=== PATIENT | female | born 2000 | race Caucasian/White ===

== ENCOUNTER 2022-05-06 17:40 | Emergency (ER) | payer BC, SELFPAY ==
--- NOTE | ~2022-05-06 | CT_ITS ---
EXAMINATION: CT abdomen pelvis w con DATE: 05/06/2022 20:55 INDICATION: RLQ and RUQ abd pain TECHNIQUE: Computed tomography (CT) of the abdomen and pelvis was performed with 100 mL Omnipaque-350 intravenous contrast. Automated exposure control and iterative reconstruction technique were employe d. The dose-length product was 321.29 mGy-cm. COMPARISON: None. FINDINGS: Lower thorax: Unremarkable Liver: Normal. Biliary/Gallbladder: Gallbladder is normal. No bile duct dilation. Pancreas: No mass or duct dilation. Spleen: Normal. Adrenals:No mass. Kidneys: No mass, stone, or hydronephrosis. GI tract: No small or large bowel dilation. Normal appendix. Mesentery/Peritoneum: No ascites, mass, or free air. Retroperitoneum: No mass. Pelvis: Pelvic organs are within normal limits. Soft Tissues: Soft tissues and body wall unremarkable. Bones: No acute osseous finding. IMPRESSION: No acute abdominopelvic process detected. Reviewed, dictated and finalized at location K. [facility]
[2022-05-06 17:50] VITALS: BP 138/105; PULSE 116; RESP 22; TEMP 36.9; O2SAT 100
[2022-05-06 20:13] LABS: Basophils Percent Auto 0.3 % (0.2-1.2); Hematocrit 44.8 % (37.0-47.0); Hemoglobin 15.5 g/dL (12.0-15.0); Immature Granulocyte Absolute 0.03 K/mm3 (0.00-0.031); Immature Granulocyte Percent A 0.3 % (0-0.5); Lymphocytes Percent Auto 19.2 % (18.3-44.2); Mean Corpuscular HGB Conc 34.6 g/dl (32-36); Mean Corpuscular Volume 92.6 fl (80-100); Mean Platelet Volume 9.9 fl (7.4-10.4); Monocytes Absolute Auto 0.7 K/mm3 (0.1-0.6); Monocytes Percent Auto 6.7 % (2.6-8.5); Neutrophils Absolute Auto 7.7 K/mm3 (1.3-6.7); Neutrophils Percent Auto 73.5 % (45.5-73.1); Platelet Count Result 312 k/mm3 (150-375); Red Blood Count 4.84 M/mm3 (4.2-5.4); White Blood Count 10.4 K/mm3 (4.5-10.0)
[2022-05-06 20:14] LABS: Appearance Urine Clear (Clear); Bilirubin Urine 1+ (Negative); Blood Urine Negative (Negative); Color Urine Yellow (Yellow); Glucose Urine UA Negative (Negative); Ketones Urine 4+ mg/dL (Negative); Leukocyte Esterase Ur Negative LEU/UL (Negative); Nitrate Urine Negative (Negative); Protein Urine 1+ mg/dL (Negative); Specific Grav Ur 1.025 (1.001-1.035); Urobilinogen Urine 0.2 mg/dL (<2.0)
--- NOTE | 2022-05-06 20:16 | ED.ABDPAIN ---
HPI - Abdominal Pain General Chief Complaint: Abdominal Pain Stated Complaint: abd pain, vomiting Time Seen by Provider: 05/06/22 20:09 Source: patient and family Mode of arrival: ambulatory Limitations: no limitations History of Present Illness HPI narrative: Patient is a 21-year-old female who presents for evaluation of abdominal pain, nausea and vomiting. Patient states that she has felt unwell over the past 24 hours, with initial symptoms beginning after she ate some ground turkey that may have been 10 to 12 days old. Patient states she has had upper and middle abdominal cramping that is aching in nature, moderate in nature without radiation to the flanks. She reports associated chills and episodes of diaphoresis but denies fever. She denies chest pain, cough, shortness of breath. She denies dysuria or hematuria. She denies any diarrhea at this point. Patient has been unable to tolerate oral intake today secondary to nausea, pain. She also reports several episodes of nonbloody, nonbilious emesis last night. Patient has not been able to take any oral [id number] medications to help with pain. Related Data Allergies Allergy/AdvReac Type Severity Reaction Status Date / Time Penicillins AdvReac Rash Verified 05/06/22 20:17 Review of Systems Review of Systems: CONSTITUTIONAL: Denies fever, reports chills and diaphoresis EYES: Denies visual changes, redness, or discharge. ENT: Denies rhinorrhea, congestion, sore throat, or otalgia. CARDIOVASCULAR: Denies chest pain, palpitations, or edema. RESPIRATORY: Denies cough or dyspnea. GASTROINTESTINAL: Reports abdominal pain, nausea and vomiting GENITOURINARY: Denies dysuria or hematuria. SKIN: Denies rash or itching. MUSCULOSKELETAL: Denies back pain, joint pain, or myalgia. NEUROLOGIC: Denies headache, numbness, or weakness. [facility] Past Medical History Medical History (Updated 05/07/22 @ 00:01 by Stefany Dasonya) No pertinent past medical history Surgical History Surgical History (Updated 05/06/22 @ 20:26 by Bernice Martin MD) H/O adenoidectomy History of tonsillectomy Social History Social History (Updated 05/06/22 @ 20:26 by Bernice Martin MD) Smoking status: Never smoker Alcohol intake: never Substance use: never Gender identity (if verbalized by the patient): Female Exam Narrative: GENERAL: Awake, alert, conversant HEAD: Normocephalic, atraumatic. EYES: PERRLA and EOMI. ENT: Nares clear, no rhinorrhea or epistaxis. Mucous membranes moist. NECK: Supple. CHEST: No respiratory distress, breathing even and non labored HEART: Regular rate, sinus rhythm ABDOMEN:Non distended, tender throughout, focused in the right left lower quadrant, right upper quadrant, no rebound, nonrigid, no guarding EXTREMITIES: Normal range of motion. No edema. SKIN: Warm, dry, no rash. NEURO:No focal deficits. Alert and oriented x3 Course Vital Signs Vital signs: Vital Signs Temperature 36.9 C 05/06/22 17:50 Pulse Rate 116 H 05/06/22 17:50 Respiratory Rate 22 H 05/06/22 17:50 Blood Pressure 138/105 H 05/06/22 17:50 Pulse Oximetry 100 05/06/22 17:50 Temperature 36.9 C 05/06/22 17:50 Pulse Rate 90 05/06/22 22:48 Respiratory Rate 16 05/06/22 22:48 Blood Pressure 112/79 05/06/22 22:48 Pulse Oximetry 100 05/06/22 22:48 MDM - Abdominal Pain MDM Narrative Medical decision making narrative: Patient presented for evaluation of nausea, vomiting, abdominal pain after eating some turkey that may have been altered by date. At the time of assessment, patient is mildly tachycardic, afebrile. She has abdominal pain throughout especially in the right upper and right lower quadrant. No flank tenderness. IV access obtained and patient was given IV fluids with concern for dehydration. Patient with very mild leukocytosis. No significant electrolyte derangement or acute kidney injury. She does have a metabolic acidosis with a CO2 of
[2022-05-06 20:23] LABS: Alanine Aminotransferase 26 U/L (6-35); Albumin Level 4.8 g/dL (3.5-5.1); Alkaline Phosphatase 84 U/L (38-126); Anion Gap 12 mmol/L (8-16); Aspartate Amino Transferase 36 U/L (14-36); Bilirubin,Total 0.5 mg/dL (0.2-1.3); Blood Urea Nitrogen 10 mg/dL (7-17); Calcium 9.4 mg/dL (8.4-10.2); Carbon Dioxide 17 mmol/L (22-30); Chloride 104 mmol/L (98-107); Estimated CRCL calculation 84 ml/min; Estimated Glomerular Filt Rate > 60; Glucose 90 mg/dL (65-110); Lipase 51 U/L (23-300); Sodium 133 mmol/L (137-145)
[2022-05-06 20:29] LABS: Mucus Urine Few /lpf; RBC Urine 0-2 /hpf (0-2); Squamous Epithelial Cell Urine Occasional /hpf (Few); WBC Urine 0-3 /hpf
[2022-05-06 20:31] LABS: Add Urine Microscopic? YES
[2022-05-06] MEDS: ONDANSETRON INJ 4 MG/2 ML VIAL IV PUSH ×2 (20:32→22:20)
[2022-05-06] MEDS: MORPHINE SULFATE (*CRX) 2 MG/ML INJ IV PUSH (20:33)
[2022-05-06] MEDS: SODIUM CHLORIDE 0.9% IV 1,000 ML 999 ML IV CONT ×2 (20:36)
[2022-05-06 22:48] VITALS: BP 112/79; PULSE 90; RESP 16; O2SAT 100
== END 2022-05-06 22:49 | disposition home or self-care (01) ==
PROVIDERS: Emergency Provider Emergency Medicine
DX: A05.9 Bacterial foodborne intoxication, unspecified (principal); E86.0 Dehydration
CPT/HCPCS: 36415; 74177; 80053; 81001; 81025; 83690; 85025; 96361; 96374; 96375; 96376; 99284; J0131; J2270; J2405; J7030; Q9967